=== PATIENT | male | born 1925 | race Caucasian/White ===

== ENCOUNTER → 2016-12-10 | Outpatient (CLI) | payer OTHER ==
[~2016-12-10] MED LIST: ADVIN25050 INH; ALBU0.5N2; ALBU1AER9; AMBCR125 PO; ASPI-435 PO; DESO0.259; HYT/2 PO; ISOS30TA3 PO; LISI20TA3 PO; METO25TA3 PO; OXGN; PRLSR20 PO; SIMV5TAB2 PO; TIOTCAP INH; preser vision PO
--- NOTE | 2016-12-10 11:42 | DIAGNOSTIC IMAGING REPORT ---
PET/CT CLINICAL HISTORY: Non-small cell lung cancer. COMPARISON STUDY: PET/CT dated 09/10/15. Chest CT dated 01/06/2016 and 12/27/2014. TECHNIQUE: One hour following the IV administration of 14.33 mCi of F-18 FDG, PET/CT examination was performed from the orbital meatal line through the bony pelvis. Noncontrast CT is performed for the purposes of anatomic correlation and attenuation correction. Note that this does not reflect a diagnostic CT examination. Images were reviewed on a separate [employer] independent workstation. Fused images were obtained. Standard uptake values reported are maximum values within the region of interest expressed in gm/mL. FINDINGS: PET FINDINGS: Head and neck: There is expected physiologic activity within the visualized brain parenchyma at the skull base and the salivary glands. Foci of increased FDG activity in the lower neck bilaterally is likely related to muscular activity. No corresponding lesion is seen on the low-dose CT images. Thorax: Evaluation of the thorax demonstrates expected physiologic myocardial activity. There is volume loss in the right lung consistent with a history of surgical resection. There is similar-appearing consolidative change seen throughout the right lower lung. This is overall similar in appearance to 09/10/2015 examination. There is intralobular septal thickening and mild nodularity seen throughout the right lower lung, with heterogeneous patchy foci of FDG activity throughout this region. The most intense foci demonstrating maximum SUV of 6.0 this appears increased from previous. Right upper lobe airspace opacities and several of the lower lobe opacities seen on 09/10/2015 have resolved. There are new irregular and FDG avid foci of nodularity seen in the left lung. A left upper lobe lesion on image #83 measures 1.2 cm and demonstrates a maximum SUV of 3.1, and a left upper lobe lesion on image #85 measures 0.7 cm in maximum is a 1.0. A left lower lobe lesion seen on image #94 measures 1.1 cm and demonstrates a maximum SUV of 3.5, and a left lower lobe lesion on image #71 measures 1.1 cm and demonstrates a maximum SUV of 1.8. Additional smaller nodular foci are noted. No pleural effusion is seen. FDG avid mediastinal lymph nodes are again seen. A precarinal node on image #83 measures 1.7 x 1.3 cm demonstrates a maximum SUV of 2.9. FDG avid AP window node on image #83 measures 11 mm in short axis and demonstrates a maximum SUV of 2.6. Abdomen and pelvis: There is expected activity within the liver, spleen, kidneys, renal collecting system, and bladder. Low-level bowel activity is likely within physical limits. Unenhanced CT images: Partially imaged brain parenchyma at the skull base is normal in appearance noting age-related involutional change. There are bilateral ocular lens implants. The imaged paranasal sinuses are clear. Trace mastoid effusions are noted. The salivary and thyroid glands are normal in appearance. There is no cervical lymphadenopathy. There is atherosclerotic calcification of the thoracic aorta which is normal in caliber. The heart is enlarged and there is trace pericardial effusion. A small hiatal hernia is seen. Advanced emphysematous changes are noted. Small pleural effusions are identified. See above under PET findings for detailed thoracic findings. The unenhanced liver and spleen are normal in appearance. The gallbladder surgically absent. The pancreas is atrophic. The kidneys demonstrate cortical atrophy. There is no hydronephrosis. There are large bilateral renal cysts as well as numerous small nonobstructing bilateral renal calculi. The abdominal aorta is normal in caliber noting moderate atherosclerotic calcification. There is no bowel obstruction. Colonic fecal retention is observed. A bowel anastomosis is present in the pelvis. No intraperitoneal free air or abdominal ascites is identified. A left adrenal adenoma is unchanged. There is no abdominal, retroperitoneal, pelvic, or inguinal lymphadenopathy. The prostate gland is mildly enlarged and heterogeneous. The bladder is normal as visualized. The skeletal structures are osteopenic. No lytic or blastic bony lesions are identified. Postoperative changes are identified involving the right sided ribs. IMPRESSION: 1. Advanced emphysema with postoperative changes and volume loss from right-sided pulmonary resection is similar to previous. 2. There are numerous new foci of FDG avid patchy airspace nodularity seen throughout the left lung as compared to 09/10/2015. Differential considerations include progressive metastatic disease versus an infectious/inflammatory pneumonitis. 3. The right upper lobe airspace opacities and several of the right lower lobe densities seen on 09/10/2015 have resolved and were likely on an infectious/inflammatory basis. 4. Dense consolidative change in the right lower lung is again seen, and some of this is likely related to previous surgery/radiation therapy. There is increasing patchy FDG activity throughout this region which could be on an infectious/inflammatory or neoplastic basis. 5. Mildly enlarged and mildly FDG avid mediastinal lymph nodes are similar previous. 6. There is no clear evidence of extrathoracic metastatic disease. 7. Numerous bilateral nonobstructing renal calculi are again seen. 8. Additional findings as detailed above. Electronically signed by: Scar Marin M.D. 12/10/2016 11:41 AM Dictated Date/Time: 12/10/2016 11:21 AM
--- NOTE | 2016-12-18 10:13 | CODING QUERY MEDICAL NECESSITY ---
CQSUPPORTING DIAGNOSIS NEEDED A supporting diagnosis is required for the test/procedure performed on this patient in order for us to be reimbursed by the patient's insurance. Please provide a supporting diagnosis for the following test/procedure listed below next to the test name along with your signature. *If there is no additional diagnosis for this patient that would support the following test/procedure please document that below next to the test/procedure. Test(s)/Procedure(s) that require a supporting diagnosis: DOS 12/10/16 PET SCAN ORDERED BY VIVIAN ALONZO Provider Signature: Date: Thank you Estephania Campoverde [email or web address] Information Management Once completed, please kindly fax back to [phone] For questions please call [phone]
== END | disposition home or self-care (01) ==
LOC: C.PET 08:44
PROVIDERS: ATTEND Physician Assistant
DX: C34.90 Malignant neoplasm of unspecified part of unspecified bronchus or lung (principal); J43.9 Emphysema, unspecified; R91.8 Other nonspecific abnormal finding of lung field; N20.0 Calculus of kidney; K59.00 Constipation, unspecified; I51.7 Cardiomegaly; K44.9 Diaphragmatic hernia without obstruction or gangrene; J90 Pleural effusion, not elsewhere classified; N28.1 Cyst of kidney, acquired; I70.0 Atherosclerosis of aorta; D35.02 Benign neoplasm of left adrenal gland; M85.80 Other specified disorders of bone density and structure, unspecified site; N26.1 Atrophy of kidney (terminal); J44.9 Chronic obstructive pulmonary disease, unspecified; J18.9 Pneumonia, unspecified organism

== ENCOUNTER 2017-01-07 08:09 | Day surgery (SDC) | payer OTHER ==
[~2017-01-07] VITALS: Ht 172.7 cm; Wt 78.0 kg
[2017-01-07] VITALS (12 sets, daily range): BP systolic 121–178; BP diastolic 66–95; PULSE 90–101; TEMP 36.6; O2SAT 95–99; Ht 172.7 cm; Wt 78.0 kg
[2017-01-07] MEDS ORDERED: MIDAZOLAM HCL 1 MG/ML 2ML VIAL IV ONE (08:10)
[2017-01-07] MEDS ORDERED: FENTANYL CITRATE 100 MCG 2 ML CARP IV ONE (08:10)
[2017-01-07] MEDS ORDERED: LIDOCAINE HCL 2% LOCAL 50ML VIAL INFIL ONE (08:10)
--- NOTE | 2017-01-07 10:17 | History & Physical Bridge Note ---
H&P Re-Evaluation Bridge Note: I have examined the patient, reviewed the History & Physical and in the interval since the performance of the History & Physical I have noted the following changes of clinical significance: No changes noted
--- NOTE | 2017-01-07 10:18 | Procedure Note ---
Pre-Mod Sedation Assessment General Date of Moderate Sedation: Jan 07, 2017. Vital Signs: Vital Signs Past 12 Hours Date Time Temp Pulse Resp B/P (MAP) Pulse Ox O2 Delivery O2 Flow Rate FiO2 01/07/17 09:21 36.6 90 19 178/95 (122) 98 Nasal Cannula 2 Review Cardiovascular: regular rate, rhythm, no edema, no gallop, no JVD, no murmur, normal peripheral pulses Abdomen: normal bowel sounds, non tender, soft Lungs: chest non-tender, lungs clear, normal breath sounds, no respiratory distress Airway Class: II Pre-Sedation Airway Assessment Oral Cavity: Dentures Able to Visualize Vocal Cords: Yes Short Thick Neck: No Hx of Sleep Apnea: No Smoking Status: Former Smoker Mallampati Classification: Class II ASA Classification: Class III Procedure Planning Contraindications-for Mod Sed: None Yes Notes The planned sedation has been discussed with the patient and consent obtained. I have identified the patient, determined the appropriateness of sedation and have assessed the patient immediately prior to the procedure. All medicine(s) and interventions are by my order.
[2017-01-07] MEDS ORDERED: MIDAZOLAM HCL 5 MG/ML 1 ML VIAL IV ONE (11:00)
[2017-01-07] MEDS ORDERED: NURSING VERBAL MED ORDER ONE (11:00)
[2017-01-07] MEDS ORDERED: FENTANYL CITRATE INJ 50 MCG/1 ML 2 ML VIAL IV ONE (11:00)
--- NOTE | 2017-01-07 11:04 | Procedure Note ---
Post-Moderate Sedation Plan General Date of Moderate Sedation Jan 07, 2017. Vital Signs: Vital Signs Past 12 Hours Date Time Temp Pulse Resp B/P (MAP) Pulse Ox O2 Delivery O2 Flow Rate FiO2 01/07/17 10:55 97 16 140/74 99 Nasal Cannula 6.0 01/07/17 10:50 96 17 140/74 99 Nasal Cannula 6.0 01/07/17 10:45 93 19 145/86 99 Nasal Cannula 6.0 01/07/17 10:40 99 18 154/85 99 Nasal Cannula 6.0 01/07/17 10:35 101 17 150/85 99 Nasal Cannula 6.0 01/07/17 10:29 96 17 154/85 99 Nasal Cannula 6.0 01/07/17 09:21 36.6 90 19 178/95 (122) 98 Nasal Cannula 2 Review - Discharge Plan Post Moderate Sedation Plan: On clinical assessment, the patient appears to have tolerated the conscious sedation without complications. Patient is recovering as anticipated. Patient will continue to be monitored by nursing and may be discharged when conscious sedation discharge criteria are met.
--- NOTE | 2017-01-07 11:07 | Bronchoscopy Procedure Note ---
Bronchoscopy Procedure Note Procedure: Bronchoscopy, conscious sedation, BAL LINCOLN Consent: Obtained through the patient placed into the chart Pre-procedural diagnosis: recurrent lung ca Post-procedural diagnosis: recurrent lung ca Start time: 1040 End time: 1052 Total time: 12 minutes Analgesia: 2% liquid lidocaine: Via nebulizer 4% gel lidocaine: Via right naris 2% liquid lidocaine: Via bronchoscopy Sedation: Versed IV: 3 mg Fentanyl IV: 50 g Procedure: The [employer] video bronchoscope was used for this procedure and passed down through the right naris Right naris/posterior naris/posterior oropharynx: Anatomically within normal limits Glottis: Anatomically within normal limits Vocal cords: Proper abduction and abduction, anatomically within normal limits Subglottis/trachea/Rose: Anatomically within normal limits Right bronchial tree: Right mainstem bronchus: Anatomically within normal limits Right upper lobe: previous RUL resection intact with no-sings of break-down Bronchus intermedius: Anatomically within normal limits Right middle lobe: Anatomically within normal limits Right lower lobe: Anatomically within normal limits Findings: No significant findings noted Left bronchial tree: Left mainstem bronchus: hyperemic, Anatomically within normal limits Left upper lobe: Anatomically within normal limits Lingula: Anatomically within normal limits Left lower lobe: Anatomically within normal limits Findings: No significant findings noted Bronchial alveolar lavage: LINCOLN 120cc with 80cc returned EBL: none Complications: None Follow-up: In the [facility]
--- NOTE | 2017-01-07 11:09 | Discharge Instructions ---
Discharge Instructions Date of Service Jan 07, 2017. Admission Reason for Admission: Adenocarcinoma Lung, Copd, Hypoxia, Lung Mass Discharge Discharge Diagnosis / Problem: Lung Nodules Discharge Goals Goal(s): Diagnostic testing Activity Recommendations Activity Limitations: resume your previous activity . Instructions / Follow-Up Instructions / Follow-Up Follow-up at the [facility] Current Hospital Diet Patient's current hospital diet: Discharge Diet Recommended Diet: Regular Diet Procedures Procedures Performed: Bronchoscopy with conscious sedation and lavage of the left upper lobe Pending Studies Studies pending at discharge: yes List of pending studies: Cytology exam and microbiologic exam of the left upper lobe Medical Emergencies . Who to Call and When: Medical Emergencies: If at any time you feel your situation is an emergency, please call 911 immediately. . Non-Emergent Contact Non-Emergency issues call your: [employer] T[employer] Call Non-Emergent contact if: temperature is above 101.5 . . "Provider Documentation" section prepared by Travis Gaitan. . VTE Core Measure Inpt VTE Proph given/why not?: Treatment not indicated
== END 2017-01-07 13:02 | disposition home or self-care (01) ==
LOC: C.ACU 08:09
PROVIDERS: ATTEND Internal Medicine Critical Care Medicine
DX: C34.90 Malignant neoplasm of unspecified part of unspecified bronchus or lung (principal); J44.9 Chronic obstructive pulmonary disease, unspecified; I35.0 Nonrheumatic aortic (valve) stenosis; I25.10 Atherosclerotic heart disease of native coronary artery without angina pectoris; I42.9 Cardiomyopathy, unspecified; I11.0 Hypertensive heart disease with heart failure; I50.9 Heart failure, unspecified; E11.9 Type 2 diabetes mellitus without complications; K21.9 Gastro-esophageal reflux disease without esophagitis; D50.9 Iron deficiency anemia, unspecified; I25.2 Old myocardial infarction; J70.0 Acute pulmonary manifestations due to radiation; Z87.891 Personal history of nicotine dependence; Z99.81 Dependence on supplemental oxygen; Z79.899 Other long term (current) drug therapy; Z79.82 Long term (current) use of aspirin